=== PATIENT | male | born 1995 | race African-American/Black ===

== ENCOUNTER 2016-05-14 18:33 | Emergency (ER) | payer OTHER ==
[2016-05-14 18:45] VITALS: BP 128/56
[2016-05-14] MEDS ORDERED: METH-37 PO (19:19)
[2016-05-14] MEDS ORDERED: ACET-704 PO (19:19)
--- NOTE | 2016-05-14 19:19 | PHYS DOC ---
Past Medical History Past Medical History: Asthma, Other Additional Past Medical Histor: CARDIO PNEUMOTHORAX Past Surgical History: Other Additional Past Surgical Histo: HERNIA, ACL Additional Information: 1 PACK PER DAY Alcohol Use: None Drug Use: None Adult General Chief Complaint Chief Complaint: Neck Pain HPI HPI Patient is a 21 year old male who presents with back pain for 6 days. Reports pain in the mid back that radiates to the neck and then to the left shoulder. He denies any injury to his neck or back. Pain does not radiate to the extremities. He denies focal weakness or numbness. He has not had any incontinence of bowel or bladder or saddle anesthesia. He denies abdominal pain or fevers. He has a history of sciatica. He does not have a PCP but sees a psychiatrist. Review of Systems Review of Systems Constitutional: Denies fever or chills. [] Eyes: Denies change in visual acuity, redness, or eye pain. [] HENT: Denies ear pain, nasal congestion or sore throat. [] Respiratory: Denies cough or shortness of breath. [] Cardiovascular: Denies chest pain, palpitations or edema. [] GI: Denies abdominal pain, nausea, vomiting, bloody stools or diarrhea. [] : Denies dysuria, hematuria or urinary frequency. [] Musculoskeletal: Denies joint pain. Reports back pain. Integument: Denies rash or skin lesions. [] Neurologic: Denies headache, focal weakness or sensory changes. Denies incontinence or saddle anesthesia. Endocrine: Denies polyuria or polydipsia. [] Psych: Denies anxiety or depression. [] All systems reviewed and negative unless otherwise stated in the HPI. Allergies Allergies Allergies Coded Allergies Type Severity Reaction Last Updated Verified cefaclor Allergy Unknown 05/14/16 Yes haloperidol Allergy Unknown 05/14/16 Yes nortriptyline Allergy Unknown 05/14/16 Yes Physical Exam Physical Exam Constitutional: Well developed, well nourished, no acute distress, non-toxic appearance. [] HENT: Normocephalic, atraumatic, oropharynx moist. [] Eyes: PERRLA, EOMI, conjunctiva normal, no discharge. [] Neck: Normal range of motion, no midline tenderness, supple, no stridor. Left paraspinal muscle tenderness with muscle spasm in the trapezius on the left. Cardiovascular: Heart rate regular rhythm, no murmur. [] Lungs & Thorax: Bilateral breath sounds clear to auscultation without wheezes, rales, or rhonchi. [] Skin: Warm, dry, no erythema, no rash. [] Back: Thoracic midline tenderness, no CVA tenderness. Left thoracic paraspinal tenderness with muscle spasm. Extremities: No tenderness, left shoulder active abduction limited to 90 degrees due to pain in the trapezius, no edema. 2+ radial and ulnar pulses. Less than 2 second capillary refill distally in the fingers. Light touch sensation intact distally in the fingers. Neurologic: Alert and oriented X 3, normal motor function, normal sensory function, no focal deficits noted. [] Psychologic: Affect normal, judgement normal, mood normal. [] Current Patient Data Vital Signs Vital Signs Date Time Temp Pulse Resp B/P Pulse Ox O2 Delivery O2 Flow Rate FiO2 05/14/16 18:45 98.7 63 16 100 Room Air 98.7 EKG EKG [] Radiology/Procedures Radiology/Procedures [] Course & Med Decision Making Course & Med Decision Making Pertinent Labs and Imaging studies reviewed. (See chart for details) [] Dragon Disclaimer Dragon Disclaimer This electronic medical record was generated, in whole or in part, using a voice recognition dictation system. Departure Departure Impression: Primary Impression: Back pain Disposition: 01 HOME, SELF-CARE Condition: STABLE Referrals: NO PCP (PCP) Patient Instructions: Back Pain, Adult, [id number] Additional Instructions: You were seen for back pain without injury. X-rays were not obtained because there was no injury to the back. Please take the prescribed medication as directed. Do not drive or operate heavy machinery while taking pain medication or muscle relaxers. Please apply heat, practice gentle stretching, and light massage to help with your back pain. Avoid bending or lifting activities that will strain the back. Please follow-up with a primary care provider if your pain continues. Return to emergency department if you have loss of bowel or bladder control, numbness between your legs, or other new or concerning symptoms. Scripts Methocarbamol (Robaxin)500 Mg [id number] Mg PO QID #20 TAB Prov:ANASTASIIA YATES 05/14/16 Acetaminophen With Codeine (Tylenol With Codeine #3 Tablet)1 Each Tablet1 Tab PO PRN Q6HRS PRN PAIN #20 TAB Prov:ANASTASIIA YATES 05/14/16 Problem Qualifiers Primary Impression: Back pain Back pain location: thoracic back pain Chronicity: acute Back pain laterality: left Qualified Code: M54.6 - Pain in thoracic spine ANASTASIIA YATES May 14, 2016 19:19
== END 2016-05-14 19:27 | disposition home or self-care (01) ==
LOC: ER 18:33
DX: M54.6 Pain in thoracic spine (principal); J45.909 Unspecified asthma, uncomplicated; Z88.1 Allergy status to other antibiotic agents; Z88.8 Allergy status to other drugs, medicaments and biological substances
CPT/HCPCS: 99283

== ENCOUNTER 2016-06-10 15:31 | Emergency (ER) | payer SELFPAY ==
[~2016-06-10] VITALS: Ht 182.9 cm; Wt 77.6 kg
[~2016-06-10 15:31] MED LIST: ACET-704 PO; HYDR115S2 PO; METH-37 PO; ONDA4TAB10 SL; OSEL75CA PO
[2016-06-10 15:45] VITALS: BP 152/66
--- NOTE | 2016-06-10 16:00 | PHYS DOC ---
Past Medical History Past Medical History: Anxiety, Asthma, Depression, Other Additional Past Medical Histor: CARDIO PNEUMOTHORAX, MOOD D/O NOS, Past Surgical History: Other Additional Past Surgical Histo: HERNIA, L ACL Alcohol Use: None Drug Use: None Adult General Chief Complaint Chief Complaint: COUGH HPI HPI Patient is a 21 year old male with history of anxiety and asthma and depression who presents today with mild left upper chest pain worse on deep breaths coughing and push on the area that began 3 days ago. Patient states he has history of smoking. Patient denies any fever. Denies any shortness of breath. Review of Systems Review of Systems Constitutional see history of present illness Eyes: Denies change in visual acuity, redness, or eye pain [] HENT: Denies nasal congestion or sore throat [] Respiratory: Cough, left upper chest pain Cardiovascular: No additional information not addressed in HPI [] GI: Denies abdominal pain, nausea, vomiting, bloody stools or diarrhea [] : Denies dysuria or hematuria [] Musculoskeletal: Denies back pain or joint pain [] Integument: Denies rash or skin lesions [] Neurologic: Denies headache, focal weakness or sensory changes [] Endocrine: Denies polyuria or polydipsia [] Allergies Allergies Allergies Coded Allergies Type Severity Reaction Last Updated Verified cefaclor Allergy Unknown 05/14/16 Yes haloperidol Allergy Unknown 05/14/16 Yes nortriptyline Allergy Unknown 05/14/16 Yes Physical Exam Physical Exam Constitutional: Well developed, well nourished, no acute distress, non-toxic appearance. [] HENT: Normocephalic, atraumatic, bilateral external ears normal, oropharynx moist, no oral exudates, nose normal. [] Eyes: PERRLA, EOMI, conjunctiva normal, no discharge. [] Neck: Normal range of motion, no tenderness, supple, no stridor. [] Cardiovascular:Heart rate regular rhythm, no murmur [] Lungs & Thorax: Bilateral breath sounds clear to auscultation [] Abdomen: Bowel sounds normal, soft, no tenderness, no masses, no pulsatile masses. [] Skin: Warm, dry, no erythema, no rash. [] Back: No tenderness, no CVA tenderness. [] Extremities: No tenderness, no cyanosis, no clubbing, ROM intact, no edema. [] Neurologic: Alert and oriented X 3, normal motor function, normal sensory function, no focal deficits noted. [] Psychologic: Affect normal, judgement normal, mood normal. [] Current Patient Data Vital Signs Vital Signs Date Time Temp Pulse Resp B/P Pulse Ox O2 Delivery O2 Flow Rate FiO2 06/10/16 15:45 98.1 94 16 97 Room Air 98.1 EKG EKG [] Radiology/Procedures Radiology/Procedures [] Course & Med Decision Making Course & Med Decision Making Pertinent Labs and Imaging studies reviewed. (See chart for details) Patient is in the ED with a cough and left-sided chest pain on coughing and deep breaths and pushing on the area that began 3 days ago.He is a smoker we encourage him to consider smoking cessation. Chest x-ray interpreted by radiologist is negative for any acute findings. Patient is in no distress. His symptoms are consistent with pleurisy. Discharged with ibuprofen 3 times a day encouraged him to continue taking deep breaths as much as he can. He was also discharged with albuterol inhaler. Instructed follow up with his own PCP in a week. Provided return precautions and discharged in stable condition. Dragon Disclaimer Dragon Disclaimer This electronic medical record was generated, in whole or in part, using a voice recognition dictation system. Departure Departure Impression: Primary Impression: Pleurisy Additional Impressions: Smoking addiction Cough Disposition: 01 HOME, SELF-CARE Condition: STABLE Referrals: NO PCP (PCP) follow up with your doctor in one week Patient Instructions: Pleurisy, [id number] Additional Instructions: You were seen for pleurisy. This is inflammation on the lining of the lung which can cause pain when you cough, take deep breaths and sometimes when you push on the area. Take ibuprofen 3 times a day. Use albuterol inhaler as needed. Take deep breaths several times in our to keep her lungs are clear. Consider smoking cessation. Come back to the emergency room for worsening/ concerning symptoms. Scripts Ibuprofen 800 Mg Exlynx465 Mg PO TID PRN INFLAMMATION #30 TAB Prov:MUTUNGA,BEE SUPERVISOR HOT DIP TINNING 06/10/16 Benzonatate (Tessalon Perle)100 Mg Capsule1 Cap PO TID #30 CAP Prov:MUTUNGA,BEE SUPERVISOR HOT DIP TINNING 06/10/16 Albuterol Sulfate (Proair Respiclick)90 Mcg Aer.pow.[id number] Puff IH PRN Q6HRS PRN SHORTNESS OF BREATH #1 INHALER Prov:BEE MENDEZ APRN 06/10/16 Problem Qualifiers BEE MENDEZ APRN Jun 10, 2016 16:00
--- NOTE | 2016-06-10 16:27 | RAD ---
INDICATION: cough COMPARISON: 05/29/2016 FINDINGS: 2 views of chest obtained. No focal airspace consolidation. Mediastinal contour is unremarkable. No gross osseous destructive lesion. IMPRESSION: No focal airspace consolidation or edema.
[2016-06-10] MEDS ORDERED: IBUP-1060 PO (16:42)
[2016-06-10] MEDS ORDERED: PROAIR RESPICL90 MCG IH (16:42)
[2016-06-10] MEDS ORDERED: BENZ100C PO (16:42)
== END 2016-06-10 17:11 | disposition home or self-care (01) ==
LOC: ER 15:31
DX: R09.1 Pleurisy (principal); F32.9 Major depressive disorder, single episode, unspecified; J45.909 Unspecified asthma, uncomplicated; F41.9 Anxiety disorder, unspecified; F17.200 Nicotine dependence, unspecified, uncomplicated; Z88.8 Allergy status to other drugs, medicaments and biological substances
CPT/HCPCS: 71020; 99284-25

== ENCOUNTER 2016-06-19 11:03 | Emergency (ER) | payer SELFPAY ==
[~2016-06-19] VITALS: Ht 182.9 cm; Wt 77.6 kg
[~2016-06-19 11:03] MED LIST changes: +BENZ100C PO; +IBUP-1060 PO; +PROAIR RESPICL90 MCG IH
[2016-06-19 11:16] VITALS: BP 126/70
[2016-06-19] MEDS ORDERED: HYDR-2666 PO (11:57)
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
== END 2016-06-19 12:28 | disposition home or self-care (01) ==
LOC: ER 11:03
DX: M54.5 Low back pain (principal); M54.2 Cervicalgia; J45.909 Unspecified asthma, uncomplicated; Z88.1 Allergy status to other antibiotic agents; Z88.6 Allergy status to analgesic agent; Z88.8 Allergy status to other drugs, medicaments and biological substances; V49.59XA Passenger injured in collision with other motor vehicles in traffic accident, initial encounter; Y92.413 State road as the place of occurrence of the external cause; Y93.89 Activity, other specified; Y99.8 Other external cause status
CPT/HCPCS: 99283

== ENCOUNTER 2016-09-09 13:45 | Emergency (ER) | payer SELFPAY ==
[~2016-09-09] VITALS: Ht 182.9 cm; Wt 77.6 kg
[~2016-09-09 13:45] MED LIST changes: +HYDR-2666 PO
[2016-09-09 14:25] VITALS: BP 112/56
--- NOTE | 2016-09-09 14:54 | PHYS DOC ---
Past Medical History Past Medical History: Anxiety, Asthma, Depression, Other Additional Past Medical Histor: CARDIO PNEUMOTHORAX, MOOD D/O NOS, PTSD, ICD Past Surgical History: Other Additional Past Surgical Histo: HERNIA, L ACL Additional Information: 1 PACK/DAY Alcohol Use: None Drug Use: None Adult General Chief Complaint Chief Complaint: EARACHE/EAR PAIN [facility] HPI Patient is a 21 year old male presents to the emergency department with a history of bending over to let his dog in when he went to stand up and the "L" shaped door handle hit him inside the right ear. Patient states he has had pain , discomfort and bleeding. Patient denies LOC. He is unsure of his last tetanus immunization. Review of Systems Review of Systems Constitutional: Denies fever or chills [] Eyes: Denies change in visual acuity, redness, or eye pain [] HENT: Denies nasal congestion or sore throat. C/o right ear pain Respiratory: Denies cough or shortness of breath [] Cardiovascular: No additional information not addressed in HPI [] GI: Denies abdominal pain, nausea, vomiting, bloody stools or diarrhea [] : Denies dysuria or hematuria [] Musculoskeletal: Denies back pain or joint pain [] Integument: Denies rash or skin lesions [] Neurologic: Denies headache, focal weakness or sensory changes [] Endocrine: Denies polyuria or polydipsia [] Allergies Allergies Allergies Coded Allergies Type Severity Reaction Last Updated Verified cefaclor Allergy Unknown 05/14/16 Yes haloperidol Allergy Unknown 05/14/16 Yes nortriptyline Allergy Unknown 05/14/16 Yes ibuprofen Adverse Reaction Unknown Unknown 06/19/16 Yes Physical Exam Physical Exam Constitutional: Well developed, well nourished, no acute distress, non-toxic appearance. [] HENT: Normocephalic, atraumatic, bilateral external ears normal, oropharynx moist, no oral exudates, nose normal. Bilateral TM normal, patient was noted to have superficial abrasion to in the ear canal on the right. Eyes: PERRLA, EOMI, conjunctiva normal, no discharge. [] Neck: Normal range of motion, no tenderness, supple, no stridor. [] Cardiovascular:Heart rate regular rhythm, no murmur [] Lungs & Thorax: Bilateral breath sounds clear to auscultation [] Skin: Warm, dry, no erythema, no rash. [] Back: No tenderness Extremities: No tenderness, no cyanosis, no clubbing, ROM intact, no edema. [] Neurologic: Alert and oriented X 3, normal motor function, normal sensory function, no focal deficits noted. [] Psychologic: Affect normal, judgement normal, mood normal. [] Current Patient Data Vital Signs Vital Signs Date Time Temp Pulse Resp B/P (MAP) Pulse Ox O2 Delivery O2 Flow Rate FiO2 09/09/16 14:25 98.2 74 18 100 Room Air 98.2 EKG EKG [] Radiology/Procedures Radiology/Procedures [] Course & Med Decision Making Course & Med Decision Making Pertinent Labs and Imaging studies reviewed. (See chart for details) Patient will be discharged home in stable condition. He will be updated with a tetanus immunization here in the emergency department. Recommended keeping the area clean and dry and placing antibiotic ointment in the ear canal. Patient was provided signs and symptoms to return to the emergency department. Patient agrees with discharge instructions, treatment regimen and followup recommendations. [] Dragon Disclaimer Dragon Disclaimer This electronic medical record was generated, in whole or in part, using a voice recognition dictation system. Departure Departure Impression: Primary Impression: Abrasion of right ear canal Disposition: HOME, SELF-CARE Condition: STABLE Referrals: NO PCP (PCP) Patient Instructions: Abrasion, [id number] Additional Instructions: Activity as tolerated Keep the area clean and dry Clean the site with soap and water and apply antibiotic ointment to the area If you notice any yellow/greenish discharge followup with your primary care provider immediately Return to emergency department as needed for signs and symptoms that become worse. CHRISSY HOUSER FINISHING ROOM SUPERVISOR September 09, 2016 14:54
== END 2016-09-09 15:03 | disposition home or self-care (01) ==
LOC: ER 15:01
DX: S00.411A Abrasion of right ear, initial encounter (principal); F43.10 Post-traumatic stress disorder, unspecified; J45.909 Unspecified asthma, uncomplicated; F17.200 Nicotine dependence, unspecified, uncomplicated; Z88.1 Allergy status to other antibiotic agents; Z88.6 Allergy status to analgesic agent; Z88.8 Allergy status to other drugs, medicaments and biological substances; W22.09XA Striking against other stationary object, initial encounter; Y93.89 Activity, other specified; Y99.8 Other external cause status; Y92.89 Other specified places as the place of occurrence of the external cause
CPT/HCPCS: 99281

== ENCOUNTER 2016-10-12 12:28 | Emergency (ER) | payer SELFPAY ==
[~2016-10-12] VITALS: Ht 185.4 cm; Wt 77.1 kg
[~2016-10-12 12:28] MED LIST changes: -HYDR-2666 PO; +HYDR-2758 PO
[2016-10-12 12:35] VITALS: BP 122/59
[2016-10-12] MEDS ORDERED: HYDROcodone/APAP 5/325MG 1 TAB TABLET PO ONE (13:15)
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
[2016-10-12] MEDS ORDERED: DICL100G18 TP (14:10)
--- NOTE | 2016-10-12 14:10 | PHYS DOC ---
Past Medical History Past Medical History: Anxiety, Asthma, Depression, Other Additional Past Medical Histor: CARDIO PNEUMOTHORAX, MOOD D/O NOS, PTSD, ICD Past Surgical History: Other Additional Past Surgical Histo: HERNIA, L ACL Alcohol Use: None Drug Use: None Adult General Chief Complaint Chief Complaint: FOOT INJURY PAIN HPI HPI Patient is a 21 year old male who presents with left lateral foot pain that began this morning at 2 AM. Patient states he was walking his dog when he stepped on a rock rolling his left foot. He also states he missed work and would like a note for work. Review of Systems Review of Systems Constitutional: Denies fever or chills [] Eyes: Denies change in visual acuity, redness, or eye pain [] HENT: Denies nasal congestion or sore throat [] Musculoskeletal: Left lateral foot pain Integument: Denies rash or skin lesions [] Neurologic: Denies headache, focal weakness or sensory changes [] Endocrine: Denies polyuria or polydipsia [] Current Medications Current Medications Current Medications Medications (Trade) Dose Ordered Sig/River Start Time Stop Time Status Last Admin Dose Admin Acetaminophen/ Hydrocodone Bitart (Lortab 5/325) 1 tab 1X ONCE 10/12/16 13:15 10/12/16 13:16 DC 10/12/16 13:40 1 TAB Allergies Allergies Allergies Coded Allergies Type Severity Reaction Last Updated Verified cefaclor Allergy Unknown 05/14/16 Yes haloperidol Allergy Unknown 05/14/16 Yes nortriptyline Allergy Unknown 05/14/16 Yes ibuprofen Adverse Reaction Unknown Unknown 06/19/16 Yes Physical Exam Physical Exam Constitutional: Well developed, well nourished, no acute distress, non-toxic appearance. [] HENT: Normocephalic, atraumatic, bilateral external ears normal, oropharynx moist, no oral exudates, nose normal. [] Skin: Warm, dry, no erythema, no rash. [] Back: No tenderness, no CVA tenderness. [] Extremities: Left foot with no obvious edema and obvious ecchymosis. No obvious deformity to the left foot. Tenderness on palpation of the base of the fifth metatarsal of the left foot. No navicular bone tenderness on exam. Full range of motion to the left foot and toes. +2 left pedal pulse. Cap refill less than 2 seconds left lower extremity. Sensation intact to the left foot. Neurologic: Alert and oriented X 3, normal motor function, normal sensory function, no focal deficits noted. [] Psychologic: Affect normal, judgement normal, mood normal. [] Current Patient Data Vital Signs Vital Signs Date Time Temp Pulse Resp B/P (MAP) Pulse Ox O2 Delivery O2 Flow Rate FiO2 10/12/16 13:40 12 100 Room Air 10/12/16 12:35 98.6 82 98.6 EKG EKG [] Radiology/Procedures Radiology/Procedures [] Course & Med Decision Making Course & Med Decision Making Pertinent Labs and Imaging studies reviewed. (See chart for details) Patient is in the ED with left foot pain after falling yesterday. Left foot x- rays interpreted by radiologist are negative for any acute findings. Patient was provided orthopedic shoe in the ED, neurovascular exam done by me is normal , cap refill less than 2 seconds. Ice elevation encouraged. Prescription for Voltaren, follow-up with orthopedic doctor in one week.. Dragon Disclaimer Dragon Disclaimer This electronic medical record was generated, in whole or in part, using a voice recognition dictation system. Departure Departure Impression: Primary Impression: Sprain of foot, left Disposition: HOME, SELF-CARE Condition: STABLE Referrals: NO PCP (PCP) DUANE ZIEGLER MD Follow-up in one week if pain continues Patient Instructions: Foot Sprain-Brief Additional Instructions: You were seen for left foot sprain. Your left foot x-ray is negative for any acute findings. Take the prescribed pain medicine as needed. Follow-up with your doctor in 1-2 weeks. Scripts Diclofenac Sodium (VOLTAREN) 100 Gm Gel..gram. 1 GM TP QID, #100 GM 2 Refills Prov: BEE MENDEZ APRN 10/12/16 Problem Qualifiers Primary Impression: Sprain of foot, left Encounter type: initial encounter Qualified Codes: S93.602A - Unspecified sprain of left foot, initial encounter ANDREABEE HURST Oct 12, 2016 14:10
== END 2016-10-12 14:15 | disposition home or self-care (01) ==
LOC: ER 12:28
DX: S93.602A Unspecified sprain of left foot, initial encounter (principal); F43.10 Post-traumatic stress disorder, unspecified; J45.909 Unspecified asthma, uncomplicated; F42.9 Obsessive-compulsive disorder, unspecified; Z88.6 Allergy status to analgesic agent; Z88.8 Allergy status to other drugs, medicaments and biological substances; W22.8XXA Striking against or struck by other objects, initial encounter; Y93.K1 Activity, walking an animal; Y99.8 Other external cause status; Y92.89 Other specified places as the place of occurrence of the external cause
CPT/HCPCS: 73630; 99284

== ENCOUNTER 2017-01-25 09:07 | Emergency (ER) | payer SELFPAY ==
[~2017-01-25] VITALS: Ht 182.9 cm; Wt 77.1 kg
[~2017-01-25 09:07] MED LIST changes: +DICL100G18 TP
--- NOTE | 2017-01-25 09:41 | EKG ---
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
[2017-01-25] MEDS ORDERED: IV NORMAL SALINE 1000ML BAG 1,000 ML IV SCH (09:44)
[2017-01-25] MEDS ORDERED: ONDANSETRON PF 4 MG/2 ML VIAL. IV ONE (09:45)
[2017-01-25] MEDS ORDERED: fentaNYL PF VIAL 100 MCG/2 ML VIAL IV PRN (09:45)
[2017-01-25 09:57] LABS: BASO % 1 % (0-3); EOS % 3 % (0-3); HEMATOCRIT 48.1 % (39.0-53.0); HEMOGLOBIN 15.2 g/dL (13.0-17.5); LYMPH # 2.2 x10^3/uL (1.0-4.8); LYMPH % 53 % (24-48); MEAN CORPUSCULAR HEMOGLOBIN 23 pg (25-35); MEAN CORPUSCULAR HGB CONC 32 g/dL (31-37); MEAN CORPUSCULAR VOLUME 74 fL (79-100); MONO % 10 % (0-9); NEUT % 35 % (31-73); PLATELET COUNT 153 x10^3/uL (140-400); RED BLOOD COUNT 6.54 x10^6/uL (4.30-5.70); RED CELL DISTRIBUTION WIDTH 14.5 % (11.5-14.5); WHITE BLOOD COUNT 4.1 x10^3/uL (4.0-11.0)
--- NOTE | 2017-01-25 10:04 | RAD ---
PORTABLE CHEST 1V Clinical Indication: chest pain Comparison: Chest radiograph dated 06/10/2016 Findings: Normal lung volume. No focal consolidation. Normal pulmonary vasculature. No pleural effusion or pneumothorax. The cardiomediastinal silhouette and great vessels are normal. No acute osseous abnormality. IMPRESSION: No acute cardiopulmonary process.
[2017-01-25 10:06] LABS: ALBUMIN 4.4 g/dL (3.4-5.0); ALBUMIN/GLOBULIN RATIO 1.1 (1.0-1.7); CALCIUM 9.1 mg/dL (8.5-10.1); CREATININE 1.2 mg/dL (0.7-1.3); GFR 91.6; POTASSIUM 4.5 mmol/L (3.5-5.1); TOTAL BILIRUBIN 0.4 mg/dL (0.2-1.0); TOTAL PROTEIN 8.5 g/dL (6.4-8.2)
--- NOTE | 2017-01-25 10:08 | PHYS DOC ---
Past Medical History Past Medical History: Anxiety, Asthma, Depression, Other Additional Past Medical Histor: CARDIO PNEUMOTHORAX, MOOD D/O NOS, PTSD, ICD Past Surgical History: Other Additional Past Surgical Histo: HERNIA, L ACL Alcohol Use: None Drug Use: None Adult General Chief Complaint Chief Complaint: CHEST PAIN HPI HPI Patient is a 21 year old male who presents with complaint of left-sided chest wall pain for the past 2 days. Patient states his pain has been worsening with cough and when he takes a deep breath. Patient states that his pain currently as 5 out of 6. Patient denies any associated fever but states that he has been coughing up clear phlegm. Patient states that he has had similar symptoms in the past and had been diagnosed with a "cardio pneumothorax" at that time. Patient states that this was evaluated at [facility]. The patient states that he is not currently on any medications. Patient states that he has followed in the past with [facility] for primary care but has not been there in many years. Patient has not taken any medications to help with symptoms at this time. Review of Systems Review of Systems Constitutional: Denies fever or chills [] Eyes: Denies change in visual acuity, redness, or eye pain [] HENT: Denies nasal congestion or sore throat [] Respiratory: Denies cough or shortness of breath [] Cardiovascular: Chest pain, denies edema[] GI: Denies abdominal pain, nausea, vomiting, bloody stools or diarrhea [] : Denies dysuria or hematuria [] Musculoskeletal: Denies back pain or joint pain [] Integument: Denies rash or skin lesions [] Neurologic: Denies headache, focal weakness or sensory changes [] Current Medications Current Medications Current Medications Medications (Trade) Dose Ordered Sig/River Start Time Stop Time Status Last Admin Dose Admin Fentanyl Citrate (Fentanyl 2ml Vial) 50 mcg PRN Q15MIN PRN 01/25/17 09:45 01/26/17 09:44 01/25/17 10:27 50 MCG Ondansetron HCl (Zofran) 4 mg 1X ONCE 01/25/17 09:45 01/25/17 09:47 DC 01/25/17 10:26 4 MG Sodium Chloride 1,000 ml @ 1,000 mls/hr Q1H 01/25/17 09:44 01/25/17 10:43 DC 01/25/17 10:26 1,000 MLS/HR Allergies Allergies Allergies Coded Allergies Type Severity Reaction Last Updated Verified cefaclor Allergy Unknown 05/14/16 Yes haloperidol Allergy Unknown 05/14/16 Yes nortriptyline Allergy Unknown 05/14/16 Yes ibuprofen Adverse Reaction Unknown Unknown 06/19/16 Yes Physical Exam Physical Exam Constitutional: Alert, afebrile, vital signs are stable, appears in mild discomfort. [] HENT: Normocephalic, atraumatic, bilateral external ears normal, oropharynx moist, no oral exudates, nose normal. [] Eyes: PERRLA, EOMI, conjunctiva normal, no discharge. [] Neck: Normal range of motion, no tenderness, supple, no stridor. [] Cardiovascular:Heart rate regular rhythm, no murmur [] Lungs & Thorax: Bilateral breath sounds clear to auscultation, left midaxillary chest wall tenderness to palpation [] Abdomen: Bowel sounds normal, soft, no tenderness, no masses, no pulsatile masses. [] Skin: Warm, dry, no erythema, no rash. [] Back: No tenderness, no CVA tenderness. [] Extremities: No tenderness, no cyanosis, no clubbing, ROM intact, no edema. [] Neurologic: Alert and oriented X 3, normal motor function, normal sensory function, no focal deficits noted. [] Current Patient Data Vital Signs Vital Signs Date Time Temp Pulse Resp B/P (MAP) Pulse Ox O2 Delivery O2 Flow Rate FiO2 01/25/17 10:27 18 100 Room Air 01/25/17 09:15 98.1 75 140/85 (103) 98.1 Lab Values Laboratory Tests Test 01/25/17 09:24 White Blood Count 4.1 x10^3/uL (4.0-11.0) Red Blood Count 6.54 x10^6/uL (4.30-5.70) H Hemoglobin 15.2 g/dL (13.0-17.5) Hematocrit 48.1 % (39.0-53.0) Mean Corpuscular Volume 74 fL (79-100) L Mean Corpuscular Hemoglobin 23 pg (25-35) L Mean Corpuscular Hemoglobin Concent 32 g/dL (31-37) Red Cell Distribution Width 14.5 % (11.5-14.5) Platelet Count 153 x10^3/uL (140-400) Neutrophils (%) (Auto) 35 % (31-73) Lymphocytes (%) (Auto) 53 % (24-48) H Monocytes (%) (Auto) 10 % (0-9) H Eosinophils (%) (Auto) 3 % (0-3) Basophils (%) (Auto) 1 % (0-3) Neutrophils # (Auto) 1.4 x10^3uL (1.8-7.7) L Lymphocytes # (Auto) 2.2 x10^3/uL (1.0-4.8) Monocytes # (Auto) 0.4 x10^3/uL (0.0-1.1) Eosinophils # (Auto) 0.1 x10^3/uL (0.0-0.7) Basophils # (Auto) 0.0 x10^3/uL (0.0-0.2) Sodium Level 141 mmol/L (136-145) Potassium Level 4.5 mmol/L (3.5-5.1) Chloride Level 104 mmol/L (98-107) Carbon Dioxide Level 30 mmol/L (21-32) Anion Gap 7 (6-14) Blood Urea Nitrogen 11 mg/dL (8-26) Creatinine 1.2 mg/dL (0.7-1.3) Estimated GFR (Cockcroft-Gault) 91.6 BUN/Creatinine Ratio 9 (6-20) Glucose Level 88 mg/dL (70-99) Calcium Level 9.1 mg/dL (8.5-10.1) Total Bilirubin 0.4 mg/dL (0.2-1.0) Aspartate Amino Transferase (AST) 28 U/L (15-37) Alanine Aminotransferase (ALT) 49 U/L (16-63) Alkaline Phosphatase 118 U/L (46-116) H Total Protein 8.5 g/dL (6.4-8.2) H Albumin 4.4 g/dL (3.4-5.0) Albumin/Globulin Ratio 1.1 (1.0-1.7) Laboratory Tests 01/25/17 09:24 Laboratory Tests 01/25/17 09:24 EKG EKG Interpreted by me: Heart rate 84, sinus rhythm, normal axis, early repolarization in the precordial leads, no acute ST/T-wave abnormalities present [] Radiology/Procedures Radiology/Procedures [facility] [address] [place], [place] [id number] IMAGING REPORT Signed PATIENT: SONNY KASPER ACCOUNT: [id number] : 1995 LOCATION: ER AGE: 21 SEX: M EXAM STATUS: REG ER ORD. PHYSICIAN: KAYA YIP MD REASON: chest pain PROCEDURE: PORTABLE CHEST 1V PORTABLE CHEST 1V Clinical Indication: chest pain Comparison: Chest radiograph dated 06/10/2016 Findings: Normal lung volume. No focal consolidation. Normal pulmonary vasculature. No pleural effusion or pneumothorax. The cardiomediastinal silhouette and great vessels are normal. No acute osseous abnormality. IMPRESSION: No acute cardiopulmonary process. DICTATED and SIGNED BY: MACY BENJAMIN MD DATE: 01/25/17 1000 CC: KAYA YIP MD; NO PCP ~ [] Course & Med Decision Making Course & Med Decision Making Pertinent Labs and Imaging studies reviewed. (See chart for details) Patient given fentanyl in the emergency department for symptoms. Patient's testing unremarkable. The patient's symptoms appear consistent with deep intercostal muscle strain. The patient will be continued on Flexeril and naproxen for outpatient treatment. Recommended follow-up with primary doctor in 3-5 days for reevaluation. Advised return emergency department for any worsening symptoms. Patient voiced understanding and in agreement with treatment plan. Dragon Disclaimer Dragon Disclaimer This electronic medical record was generated, in whole or in part, using a voice recognition dictation system. Departure Departure Impression: Primary Impression: Chest wall pain Disposition: HOME, SELF-CARE Condition: IMPROVED Referrals: NO PCP (PCP) Patient Instructions: Chest Wall Pain, Muscle Strain Additional Instructions: Follow-up with your primary doctor in 3-5 days for reevaluation. Return to emergency department for any worsening symptoms. Scripts Cyclobenzaprine Hcl (CYCLOBENZAPRINE HCL) 10 Mg Tablet 1 TAB PO QHS Y for MUSCLE SPASMS, #15 TAB Prov: KAYA YIP MD 01/25/17 Naproxen (NAPROXEN) 500 Mg Tablet 1 TAB PO BID Y for PAIN, #15 TAB 0 Refills Prov: KAYA YIP MD 01/25/17 KAYA YIP MD Jan 25, 2017 10:08
[2017-01-25 10:46] VITALS: BP 142/84
[2017-01-25] MEDS ORDERED: CYCL10TA2 PO (10:47)
[2017-01-25] MEDS ORDERED: NAPR500T4 PO (10:47)
== END 2017-01-25 10:57 | disposition home or self-care (01) ==
LOC: ER 09:07
DX: R07.89 Other chest pain (principal); J45.909 Unspecified asthma, uncomplicated; R05 Cough; Z88.8 Allergy status to other drugs, medicaments and biological substances
CPT/HCPCS: 36415; 71010; 80053; 85025; 93005; 96374; 96375; 99285; J2405; J3010; J7030